=== PATIENT | female | born 1960 | race Caucasian/White ===

== ENCOUNTER 2021-09-05 05:45 | Inpatient (IN) ==
[2021-09-01 12:46] LABS: Alanine Aminotransferase 19 U/L (13-56); Albumin 3.3 G/DL (3.4-5.0); Alkaline Phosphatase 168 U/L (45-117); Aspartate Amino Transferase 15 U/L (0-37); Bilirubin,Total < 0.39 MG/DL (0.20-1.00); Blood Urea Nitrogen 7 MG/DL (7-18); Carbon Dioxide 33 MMOL/L (21-32); Chloride 103 MMOL/L (98-107); Glucose 117 MG/DL (74-106); Osmolality,Calculated 275.5 MOS/KG (273-304); Potassium 3.7 MMOL/L (3.5-5.1); Sodium 139 MMOL/L (136-145)
[2021-09-05] MEDS ORDERED: ONDANSETRON 4 MG/2 ML VIAL ONE (06:05)
[2021-09-05] MEDS ORDERED: ROCURONIUM 50 MG/5 ML VIAL IV ONE ×2 (06:05→08:46)
[2021-09-05] MEDS ORDERED: DEXMEDETOMIDINE 200 MCG/2 ML VIAL ONE (06:05)
[2021-09-05] MEDS ORDERED: LIDOCAINE 2% 5 ML VIAL ONE (06:05)
[2021-09-05] MEDS ORDERED: propofoL 200 MG/20 ML VIAL IV ONE (06:05)
[2021-09-05] MEDS ORDERED: MIDAZOLAM 2 MG/2 ML VIAL ONE (06:06)
[2021-09-05] MEDS ORDERED: ALVIMOPAN 12 MG CAPSULE ONE (06:06)
[2021-09-05] MEDS ORDERED: fentaNYL 100 MCG/2 ML VIAL ONE (06:07)
[2021-09-05] MEDS ORDERED: FAMOTIDINE 20 MG TABLET PO ONE (06:13)
[2021-09-05] MEDS ORDERED: SCOPOLAMINE 1.5 MG PATCH TRANSDERM ONE (06:13)
[2021-09-05] MEDS ORDERED: DEXAMETHASONE 4 MG/1 ML VIAL ONE (06:24)
[2021-09-05] MEDS ORDERED: LIDOCAINE 1% 5 ML VIAL ONE (06:25)
[2021-09-05] MEDS ORDERED: ROPIVACAINE 0.5% 30 ML VIAL ONE ×2 (06:25→06:48)
[2021-09-05 06:39] LABS: Basophils % 0.4 % (0.0-0.8); Eosinophils # 0.2 10*3/uL (0.0-0.87); Hematocrit 40.9 VOL% (35.7-47.0); Hemoglobin 13.6 GM/DL (12.0-16.0); Immature Granulocytes % 0.4 %; Immature Granulocytes Absolute 0.03 #; Lymphocytes # 2.2 10*3/uL (1.4-4.0); Lymphocytes % 28.3 % (21.3-54.2); Mean Corpuscular HGB Conc 33.3 GM/DL (32-36); Mean Corpuscular Volume 98.6 FL (87-102); Mean Platelet Volume 8.9 FL (9.6-12.0); Monocytes # 0.7 10*3/uL (0.11-0.8); Monocytes % 8.9 % (1.7-12.7); Platelet Count 299 T/CUMM (130-400); Red Blood Count 4.15 MC/CUMM (3.8-5.5); Red Cell Distribution Width 13.2 % (9.3-17.3); White Blood Count 7.8 T/CUMM (4-12)
[2021-09-05] MEDS: LACTATED RINGERS 1,000 ML IV SCH ×2 (06:58→08:16)
[2021-09-05] MEDS ORDERED: cefTRIAXone 1,000 MG in SODIUM CHLORIDE 0.9% 100 ML IV ONE (07:00)
[2021-09-05] MEDS ORDERED: ePHEDrine 50 MG/ML VIAL ONE (07:33)
[2021-09-05] MEDS ORDERED: LACTATED RINGERS 1,000 ML IV ONE (07:56)
[2021-09-05] MEDS ORDERED: ACETAMINOPHEN INJ 1,000 MG/100 ML VIAL IV ONE (08:41)
[2021-09-05] MEDS ORDERED: DESFLURANE 1 UNIT/15 MINUTE INH ONE ×2 (08:46→10:30)
[2021-09-05] MEDS ORDERED: NEOSTIGMINE 10 MG/10 ML VIAL ONE (09:49)
[2021-09-05] MEDS ORDERED: GLYCOPYRROLATE 0.4 MG/2 ML VIAL ONE ×2 (09:49)
[2021-09-05] MEDS ORDERED: SUGAMMADEX 200 MG/2 ML VIAL IV ONE (09:57)
[2021-09-05] MEDS ORDERED: diphenhydrAMINE 50 MG/1 ML VIAL IV PRN (10:21)
[2021-09-05] MEDS ORDERED: SIMETHICONE CHEW 125 MG TABLET PO PRN (10:21)
[2021-09-05] MEDS ORDERED: PROMETHAZINE 25 MG/1 ML VIAL IM PRN (10:21)
[2021-09-05] MEDS ORDERED: ONDANSETRON 4 MG/2 ML VIAL IV PRN ×2 (10:21→11:06)
[2021-09-05] MEDS ORDERED: oxyCODONE/ACETAMINOPHEN 5-325 MG TABLET PO PRN (10:21)
[2021-09-05] MEDS: HYDROmorphone 1 MG/1 ML SYRINGE IV PRN ×4 (11:15→17:43)
[2021-09-05 11:22] LABS: Basophils % 0.2 % (0.0-0.8); Eosinophils # 0.1 10*3/uL (0.0-0.87); Eosinophils % 0.6 % (0.00-10.9); Hematocrit 38.2 VOL% (35.7-47.0); Hemoglobin 12.7 GM/DL (12.0-16.0); Immature Granulocytes % 0.5 %; Immature Granulocytes Absolute 0.04 #; Lymphocytes # 1.3 10*3/uL (1.4-4.0); Lymphocytes % 14.7 % (21.3-54.2); Mean Corpuscular HGB Conc 33.2 GM/DL (32-36); Mean Corpuscular Volume 99.2 FL (87-102); Mean Platelet Volume 8.8 FL (9.6-12.0); Monocytes # 0.2 10*3/uL (0.11-0.8); Monocytes % 1.9 % (1.7-12.7); Neutrophils % 82.1 % (38.7-73.9); Platelet Count 267 T/CUMM (130-400); Red Blood Count 3.85 MC/CUMM (3.8-5.5); Red Cell Distribution Width 13.2 % (9.3-17.3); White Blood Count 8.8 T/CUMM (4-12)
[2021-09-05 11:48] LABS: Calcium 8.6 MG/DL (8.5-10.1); Osmolality,Calculated 282.4 MOS/KG (273-304); Potassium 2.9 MMOL/L (3.5-5.1)
[2021-09-05] MEDS: SODIUM CHLORIDE 0.9% 1,000 ML IV SCH ×2 (12:01→20:39)
[2021-09-05] MEDS: ACETAMINOPHEN 325 MG TABLET PO SCH ×3 (14:31→23:03)
[2021-09-05] MEDS ORDERED: hydrALAZINE 20 MG/1 ML VIAL IV PRN (15:05)
[2021-09-05] MEDS: BACLOFEN 10 MG TABLET PO SCH ×2 (16:32→20:38)
[2021-09-05] MEDS: LORazepam 1 MG TABLET PO SCH ×2 (16:33→20:37)
[2021-09-05] MEDS: GABAPENTIN 400 MG CAPSULE PO SCH ×2 (16:34→20:38)
[2021-09-05] MEDS: POTASSIUM CHLORIDE 20 MEQ TABLET PO PRN ×3 (18:20→23:02)
[2021-09-05] MEDS: DOCUSATE SODIUM 100 MG CAPSULE PO SCH (20:37)
[2021-09-05] MEDS: DULoxetine 30 MG CAPSULE PO SCH (20:37)
[2021-09-05] MEDS: ATORVASTATIN 40 MG TABLET PO SCH (20:38)
[2021-09-06] MEDS: POTASSIUM CHLORIDE 20 MEQ TABLET PO PRN (01:09)
[2021-09-06] MEDS: SODIUM CHLORIDE 0.9% 1,000 ML IV SCH (04:37)
[2021-09-06] MEDS: ACETAMINOPHEN 325 MG TABLET PO SCH ×4 (04:39→22:07)
[2021-09-06] MEDS: cefTRIAXone 1,000 MG in SODIUM CHLORIDE 0.9% 100 ML IV SCH (05:18)
[2021-09-06 05:23] LABS: Basophils % 0.1 % (0.0-0.8); Eosinophils % 0.1 % (0.00-10.9); Hematocrit 34.2 VOL% (35.7-47.0); Hemoglobin 11.4 GM/DL (12.0-16.0); Immature Granulocytes % 0.5 %; Immature Granulocytes Absolute 0.05 #; Lymphocytes # 1.4 10*3/uL (1.4-4.0); Lymphocytes % 15.4 % (21.3-54.2); Mean Corpuscular HGB Conc 33.3 GM/DL (32-36); Mean Corpuscular Volume 98.8 FL (87-102); Mean Platelet Volume 9.5 FL (9.6-12.0); Monocytes # 0.9 10*3/uL (0.11-0.8); Monocytes % 9.3 % (1.7-12.7); Neutrophils % 74.6 % (38.7-73.9); Platelet Count 265 T/CUMM (130-400); Red Blood Count 3.46 MC/CUMM (3.8-5.5); Red Cell Distribution Width 13.3 % (9.3-17.3); White Blood Count 9.4 T/CUMM (4-12)
[2021-09-06 05:32] LABS: Calcium 8.6 MG/DL (8.5-10.1); Osmolality,Calculated 279.3 MOS/KG (273-304); Potassium 4.1 MMOL/L (3.5-5.1)
[2021-09-06 05:36] LABS: Risk Ratio 2.76; VLDL Cholesterol 11.6 MG/DL
[2021-09-06] MEDS: DULoxetine 30 MG CAPSULE PO SCH ×2 (09:05→21:07)
[2021-09-06] MEDS: DOCUSATE SODIUM 100 MG CAPSULE PO SCH ×2 (09:06→21:07)
[2021-09-06] MEDS: LORazepam 1 MG TABLET PO SCH ×3 (09:06→21:08)
[2021-09-06] MEDS: BACLOFEN 10 MG TABLET PO SCH ×3 (09:06→21:07)
[2021-09-06] MEDS: amLODIPine 5 MG TABLET PO SCH (09:06)
[2021-09-06] MEDS: GABAPENTIN 400 MG CAPSULE PO SCH ×3 (09:06→21:07)
[2021-09-06] MEDS: ACETAMINOPHEN/CODEINE 300-30 MG TABLET PO PRN ×2 (11:10→21:08)
[2021-09-06] MEDS ORDERED: oxyCODONE/ACETAMINOPHEN 5-325 MG TABLET PO PRN (13:57)
[2021-09-06] MEDS: ATORVASTATIN 40 MG TABLET PO SCH (21:07)
[2021-09-07] MEDS: ACETAMINOPHEN 325 MG TABLET PO SCH (04:32)
[2021-09-07] MEDS: cefTRIAXone 1,000 MG in SODIUM CHLORIDE 0.9% 100 ML IV SCH (05:19)
[2021-09-07 05:28] LABS: Basophils % 0.2 % (0.0-0.8); Eosinophils # 0.1 10*3/uL (0.0-0.87); Eosinophils % 1.3 % (0.00-10.9); Hematocrit 36.6 VOL% (35.7-47.0); Immature Granulocytes % 0.3 %; Immature Granulocytes Absolute 0.03 #; Lymphocytes # 2.3 10*3/uL (1.4-4.0); Lymphocytes % 24.5 % (21.3-54.2); Mean Corpuscular HGB Conc 32.8 GM/DL (32-36); Mean Platelet Volume 9.5 FL (9.6-12.0); Monocytes # 0.7 10*3/uL (0.11-0.8); Monocytes % 7.8 % (1.7-12.7); Neutrophils % 65.9 % (38.7-73.9); Platelet Count 288 T/CUMM (130-400); Red Blood Count 3.66 MC/CUMM (3.8-5.5); Red Cell Distribution Width 13.6 % (9.3-17.3); White Blood Count 9.4 T/CUMM (4-12)
[2021-09-07 05:48] LABS: Calcium 8.9 MG/DL (8.5-10.1); Osmolality,Calculated 277.3 MOS/KG (273-304); Potassium 3.7 MMOL/L (3.5-5.1)
[2021-09-07 07:36] VITALS: BP 134/68
[2021-09-07] MEDS: DULoxetine 30 MG CAPSULE PO SCH (08:09)
[2021-09-07] MEDS: DOCUSATE SODIUM 100 MG CAPSULE PO SCH (08:10)
[2021-09-07] MEDS: amLODIPine 5 MG TABLET PO SCH (08:10)
[2021-09-07] MEDS: GABAPENTIN 400 MG CAPSULE PO SCH (08:10)
[2021-09-07] MEDS: BACLOFEN 10 MG TABLET PO SCH (08:10)
[2021-09-07] MEDS: LORazepam 1 MG TABLET PO SCH (08:10)
== END 2021-09-07 09:25 | disposition home or self-care (01) | DRG 442 ==
LOC: N.OR 05:45 → N.SDSINP 05:47 → EDSTATUS 07:30 → N.SDSINP 10:21 → N.3E 13:47
PROVIDERS: ADMIT Surgery; ATTEND Surgery